=== PATIENT | female | born 1995 | race African-American/Black ===

== ENCOUNTER 2016-06-19 13:53 | Emergency (ER) | payer OTHER ==
[2016-06-19 14:11] VITALS: BP 124/84
--- NOTE | 2016-06-19 14:58 | ER Document Report ---
HPI - HPI Patient complains to provider of: pain with urinating Onset: Last week Onset/Duration: Gradual Quality of pain: Achy, Cramping Severity: Moderate Pain Level: 4 Context: Patient states she has been having pain with urination 1 week. Denies fever or nausea or vomiting. Patient states she has had a urinary tract infection in the past and states it feels the same way. Also wants to be checked for an STD , but states she is not having any vaginal discharge. Associated Symptoms: None Exacerbated by: Denies Relieved by: Denies Similar symptoms previously: Yes Recently seen / treated by doctor: No - ROS ROS below otherwise negative: Yes Systems Reviewed and Negative: Yes All other systems reviewed and negative - CONSTITUTIONAL Constitutional: DENIES: Fever - EENT EENT: DENIES: Congestion - NEURO Neurology: DENIES: Headache - CARDIOVASCULAR Cardiovascular: DENIES: Chest pain - RESPIRATORY Respiratory: DENIES: Trouble Breathing - GASTROINTESTINAL Gastrointestinal: DENIES: Abdominal Pain, Nausea, Patient vomiting - URINARY Urinary: REPORTS: Dysuria, Frequency - REPRODUCTIVE Reproductive: DENIES: : - MUSCULOSKELETAL Musculoskeletal: DENIES: Extremity pain - DERM Skin Color: Normal Skin Problems: None Past Medical History - General Information source: Patient - Social History Smoking Status: Never Smoker Frequency of alcohol use: None Drug Abuse: None Lives with: Family Family History: Reviewed & Not Pertinent Patient has suicidal ideation: No Patient has homicidal ideation: No - Medical History Medical History: Negative Renal/ Medical History: Denies: Hx Peritoneal Dialysis Past Surgical History: Reports: Hx Oral Surgery - wisdom teeth - Immunizations Immunizations up to date: Yes Vertical Provider Document - CONSTITUTIONAL Agree With Documented VS: Yes Exam Limitations: No Limitations General Appearance: WD/WN, No Apparent Distress - INFECTION CONTROL TRAVEL OUTSIDE OF THE [place] IN LAST 30 DAYS: No - HEENT HEENT: Atraumatic, Normocephalic - RESPIRATORY Respiratory: Breath Sounds Normal, No Respiratory Distress O2 Sat by Pulse Oximetry: 100 - CARDIOVASCULAR Cardiovascular: Regular Rate, Regular Rhythm - GI/ABDOMEN Gastrointestinal: Abdomen Soft, Abdomen Tender - Suprapubic tenderness only., Normal Bowel Sounds - BACK Back: negative: CVA Tenderness-Right, CVA Tenderness-Left - MUSCULOSKELETAL/EXTREMETIES Musculoskeletal/Extremeties: LOPEZ FOX - NEURO Level of Consciousness: Awake, Alert, Appropriate - DERM Integumentary: Warm, Dry, No Rash Course - Re-evaluation Re-evalutation: 06/19/16 17:31 Patient lab results show bacterial vaginosis and a decent infection. A urine culture will be ordered. - Vital Signs Vital signs: Temp Pulse Resp BP Pulse Ox 98.4 F 74 18 124/84 100 06/19/16 14:10 06/19/16 14:10 06/19/16 14:10 06/19/16 14:10 06/19/16 14:10 Discharge - Discharge Clinical Impression: Dysuria, Concern about STD in female without diagnosis, Bacterial vaginosis, Yeast infection of the vagina Disposition: HOME, SELF-CARE Additional Instructions: You asked to be discharged and be notified by phone of final STD results. Push fluids. Antibiotics as prescribed for 5 days for urinary symptoms. Follow-up with your primary care physician if not better in 4-5 days. Return as needed Prescriptions: Ciprofloxacin HCl [Cipro 500 mg Tablet] 500 mg PO BID #10 tablet Fluconazole [Diflucan] 150 mg PO ONCE PRN #1 tablet PRN Reason: Metronidazole [Flagyl 500 mg Tablet] 500 mg PO BID #14 tablet
[2016-06-19 15:25] LABS: APPEARANCE,URINE SLIGHTLY-CLOUDY; BILIRUBIN,URINE NEGATIVE (NEGATIVE); GLUCOSE, URINE NEGATIVE (NEGATIVE); KETONES,URINE NEGATIVE (NEGATIVE); LEUKOCYTE ESTERASE,URINE SMALL (NEGATIVE); NITRITE,URINE NEGATIVE (NEGATIVE); PROTEIN,URINE NEGATIVE (NEGATIVE); URINE SPECIFIC GRAVITY 1.026; UROBILINOGEN,URINE NEGATIVE mg/dL (<2.0)
[2016-06-19 16:55] LABS: CHLAM PCR NOT DETECTED (NOT DETECT)
== END 2016-06-19 15:00 | disposition home or self-care (01) ==
LOC: ER 13:53
DX: N76.0 Acute vaginitis (principal); B96.89 Other specified bacterial agents as the cause of diseases classified elsewhere; B37.3 Candidiasis of vulva and vagina; Z20.2 Contact with and (suspected) exposure to infections with a predominantly sexual mode of transmission; Z87.440 Personal history of urinary (tract) infections
CPT/HCPCS: 81001; 87210; 87491; 87591; 99283